=== PATIENT | female | born 1935 | race Caucasian/White ===

== ENCOUNTER 2017-03-03 18:35 | Emergency (ER) | payer MEDICARE, OTHER ==
[2017-03-03 19:19] VITALS: BP 123/55
[2017-03-03] MEDS ORDERED: LoraTADine TAB(NF) 10 MG TAB (AUTOSUB to CETIRIZINE) PO ONE (19:40)
[2017-03-03] MEDS ORDERED: Benzonatate CAP* 100 MG PO ONE (19:41)
--- NOTE | 2017-03-03 19:47 | UC ---
Throat Pain/Nasal Selvin HPI - HPI Summary HPI Summary: 81 y/o female presents to the urgent care c/o nasal congestion, dry cough since yesterday. She states her nasal discharge is clear. Now she has mild back pain and SOB from coughing. Pt reports Hx of seasonal allergies in the past, but she hasn't taken anything to alleviate her symptoms. She denies fever, BARNES, chest pain, N/V/D - History of Current Complaint Chief Complaint: UCGeneralIllness Stated Complaint: COUGH/ACHE Time Seen by Provider: 03/03/17 19:11 Hx Obtained From: Patient Hx Last Menstrual Period: n/a ?: No Onset/Duration: Gradual Onset, Lasting Days, Still Present Severity: Mild Pain Intensity: 0 Pain Scale Used: 0-10 Numeric Cough: Nonproductive Associated Signs & Symptoms: Positive: Sinus Discomfort, Nasal Discharge. Negative: Wheezing, Fever, Vomiting, Rash - Allergies/Home Medications Allergies/Adverse Reactions: Allergies Allergy/AdvReac Type Severity Reaction Status Date / Time No Known Allergies Allergy Verified 03/03/17 19:09 Home Medications: Home Medications Alendronate (NF) [Fosamax (NF)] 70 mg PO WEEKLY 03/03/17 [History Confirmed ] Carisoprodol TAB* [Soma TAB*] 350 mg PO BEDTIME 03/03/17 [History Confirmed ] LevoCETirizine TAB (NF) [Xyzal TAB (NF)] 5 mg PO DAILY 03/03/17 [History Confirmed 03/03/17] PMH/Surg Hx/FS Hx/Imm Hx Previously Healthy: Yes Endocrine History: Hypothyroidism Other Endocrine History: Osteoarthritis Respiratory History: Other Other Respiratory History: seasonal allergis - Surgical History Surgical History: Yes Surgery Procedure, Year, and Place: venous ligation, spinal fusion L/S, left knee replacement, t/a, hysterectomy 1973 - Family History Known Family History: Negative: Diabetes, Blood Disorder Family History: GERD, Osteoarthritis - Social History Occupation: Retired Lives: With Family Alcohol Use: Rare Substance Use Type: None Smoking Status (MU): Never Smoked Tobacco Review of Systems Constitutional: Negative Skin: Negative Eyes: Negative ENT: Nasal Discharge - clear, Sinus Congestion Respiratory: Cough - dry Cardiovascular: Negative Gastrointestinal: Negative Genitourinary: Negative Motor: Negative Neurovascular: Negative Musculoskeletal: Other: - back pain every time she coughs Neurological: Negative Psychological: Negative All Other Systems Reviewed And Are Negative: Yes Physical Exam Triage Information Reviewed: Yes Appearance: Well-Appearing, No Pain Distress, Well-Nourished, Obese Vital Signs: Initial Vital Signs Temp 98.0 F 03/03/17 19:14 Pulse 81 03/03/17 19:14 Resp 20 03/03/17 19:14 BP 123/55 03/03/17 19:14 Pulse Ox 95 03/03/17 19:14 Vital Signs Reviewed: Yes Eye Exam: Normal Eyes: Positive: Conjunctiva Clear - with clear watery eye discharge ENT Exam: Normal ENT: Positive: Normal ENT inspection, Hearing grossly normal, Pharynx normal - with clear post nasal drip, TMs normal. Negative: Tonsillar swelling, Tonsillar exudate Dental Exam: Normal Neck exam: Normal Neck: Positive: Supple, Nontender, No Lymphadenopathy Respiratory Exam: Normal Respiratory: Positive: Chest non-tender, Lungs clear, Normal breath sounds Cardiovascular Exam: Normal Cardiovascular: Positive: RRR, No Murmur, Pulses Normal Abdominal Exam: Normal Abdomen Description: Positive: Nontender, No Organomegaly, Soft. Negative: CVA Tenderness (R), CVA Tenderness (L) Bowel Sounds: Positive: Present Musculoskeletal Exam: Normal Musculoskeletal: Positive: Strength Intact, ROM Intact, No Edema Neurological Exam: Normal Neurological: Positive: Alert, Muscle Tone Normal Psychological Exam: Normal Skin Exam: Normal Throat Pain/Nasal Course/Dx - Course Course Of Treatment: 81 y/o female presents to the urgent care c/o nasal congestion, dry cough since yesterday. Hx Obtained. PE abnormal findings:ENT: Positive: Normal ENT inspection, Hearing grossly normal, Pharynx normal - with clear post nasal drip, TMs normal. Negative: Tonsillar swelling, Tonsillar exudate. There was not back tenderness, swelling or paraspinal muscle spasm observed. Most likely Allergic Rhinitis. and cough stimulated by post nasal drip. Since Pharmacy is closed at this time,Pt given Tessalon tabs 100mg PO 1 tab, and Claritin 10 mg PO 1 tab once to alleviate symptoms. Rx were sent to pharmacy. PT advised to increase fluid intake, rest and take medications as instruted. Pt understood and agreed. - Differential Dx/Diagnosis Differential Diagnosis/HQI/PQRI: Laryngitis, Peritonsillar Abscess, Pharyngitis , Sinusitis, URI, Other - seasonal allergies Provider Diagnoses: Allergic rhinitis, Cough Discharge - Discharge Plan Condition: Stable Disposition: HOME Prescriptions: Benzonatate CAP* [Tessalon 100 MG CAP*] 100 mg PO TID #21 cap Fluticasone NASAL SPRAY 50MCG* [Flonase NASAL SPRAY 50MCG*] 2 spray BOTH NARES DAILY #1 btl Loratadine [Claritin 10 MG CAP] 10 mg PO Q24HR #30 cap Patient Education Materials: Allergic Rhinitis (ED) Referrals: Non Staff,Doctor [Primary Care Provider] - If Needed Additional Instructions: PLease increase fluid intake and rest. Use Flonase and medication as directed to help drain fluid. Take Acetaminophen OTC to aleviate back pain. Return to the clinic or call your PCP if symptoms do not improve.
== END 2017-03-03 19:59 | disposition home or self-care (01) ==
LOC: UCCORT 18:35
DX: J30.9 Allergic rhinitis, unspecified (principal); R05 Cough
CPT/HCPCS: 99212; A9270-GY; G0463